=== PATIENT | female | born 1995 | race Two or more races ===

== ENCOUNTER 2017-02-01 17:28 | Emergency (ER) | payer BC ==
[~2017-02-01] VITALS: Ht 167.6 cm; Wt 63.5 kg
[2017-02-01] MEDS ORDERED: IV NORMAL SALINE 1000ML BAG 1,000 ML IV ONE (18:15)
[2017-02-01] MEDS ORDERED: METOCLOPRAMIDE HCL 10 MG/2 ML VIAL. IV ONE (18:15)
[2017-02-01] MEDS ORDERED: diphenhydrAMINE 50 MG/ML VIAL IVP ONE (18:15)
[2017-02-01] MEDS ORDERED: PROCHLORPERAZINE 10 MG/2 ML VIAL. IV ONE (18:15)
--- NOTE | 2017-02-01 18:50 | PHYS DOC ---
Adult General Chief Complaint Chief Complaint: HEADACHE HPI HPI Patient is a 21 year old female with history of frequent migraines who presents with left retro-orbital migraine-like headache during 3 days prior to ED arrival. Headache was gradual on onset. He is describing as throbbing and rated moderate similar to previous migraine headaches. This associated with nausea, vomiting and blurry vision. Patient last vomited yesterday. Denies neck pain, neck stiffness, fever or rash. No extremity weakness or loss of sensation. Pain is typical in quality pattern and location as previous headaches , but has not improved home and migraine. Patient is not currently on migraine prophylaxis. She experiences 2-3 migraines per week. Last menstrual period was 2 weeks ago. No other acute symptoms or complaints. Review of Systems Review of Systems Review of symptoms as per history of present illness. All other review symptoms are negative. Current Medications Current Medications Current Medications Medications (Trade) Dose Ordered Sig/Talib Start Time Stop Time Status Last Admin Dose Admin Diphenhydramine HCl (Benadryl) 50 mg 1X ONCE 02/01/17 18:15 02/01/17 18:30 DC 02/01/17 18:38 50 MG Metoclopramide HCl (Reglan) 10 mg 1X ONCE 02/01/17 18:15 02/01/17 18:30 DC 02/01/17 18:38 10 MG Prochlorperazine Edisylate (Compazine) 10 mg 1X ONCE 02/01/17 18:15 02/01/17 18:30 DC 02/01/17 18:37 10 MG Sodium Chloride 1,000 ml @ 1,000 mls/hr 1X ONCE 02/01/17 18:15 02/01/17 19:14 02/01/17 18:37 1,000 MLS/HR Allergies Allergies Allergies Coded Allergies Type Severity Reaction Last Updated Verified amoxicillin Allergy Unknown Rash 02/01/17 Yes ibuprofen Allergy Unknown Nausea and Vomiting 02/01/17 Yes Physical Exam Physical Exam Constitutional: Well developed, well nourished, moderate discomfort secondary pain. [] HENT: Normocephalic, atraumatic, bilateral external ears normal, oropharynx moist, no oral exudates, nose normal. [] Eyes: PERRLA, EOMI, conjunctiva normal, no discharge. [] Neck: Normal range of motion, no tenderness, supple, no stridor. [] Cardiovascular:Heart rate regular rhythm, no murmur [] Lungs & Thorax: Bilateral breath sounds clear to auscultation [] Abdomen: Bowel sounds normal, soft, no tenderness, no masses. [] Skin: Warm, dry, no erythema, no rash. [] Back: No tenderness. [] Extremities: No tenderness, no cyanosis, no clubbing, ROM intact, no edema. [] Neurologic: Alert and oriented X 3, normal motor function, normal sensory function, no focal deficits noted. [] Psychologic: Affect normal, judgement normal, mood normal. [] Current Patient Data Lab Values Laboratory Tests Test 02/01/17 18:01 POC Urine HCG, Qualitative Hcg negative (Negative) EKG EKG [] Radiology/Procedures Radiology/Procedures [] Course & Med Decision Making Course & Med Decision Making Pertinent Labs and Imaging studies reviewed. (See chart for details) [Retracted, migraine headache without neurologic deficits. Typical migraine cocktail given with improvement of symptoms. WeIll continue supportive treatment with recommendations of PCP follow-up. Return precautions reviewed.] Dragon Disclaimer Sabine Disclaimer This electronic medical record was generated, in whole or in part, using a voice recognition dictation system. Departure Departure Referrals: NO PCP (PCP) ZELALEM ARELLANO DO Feb 01, 2017 18:50
[2017-02-01] MEDS ORDERED: DEXAMETHASONE SOD PHOS 20 MG/5 ML VIAL. IV ONE (19:00)
[2017-02-01 19:58] LABS: BILIRUBIN,URINE NEGATIVE (NEG); GLUCOSE,URINE NEGATIVE (NEG); NITRITE,URINE NEGATIVE (NEG); PH,URINE 6.5; PROTEIN,URINE NEGATIVE (NEG-TRACE); UROBILINOGEN,URINE 0.2 mg/dL (0.2 mg/dL)
[2017-02-01 20:00] VITALS: BP 105/61
[2017-02-01 20:07] LABS: BACTERIA,URINE MODERATE /HPF (0-FEW); RBC,URINE OCC /HPF (0-2); SQUAMOUS EPITHELIAL CELL,UR MOD /LPF
== END 2017-02-01 20:35 | disposition home or self-care (01) ==
LOC: ER 17:28
DX: G43.909 Migraine, unspecified, not intractable, without status migrainosus (principal); Z88.1 Allergy status to other antibiotic agents; Z88.6 Allergy status to analgesic agent
CPT/HCPCS: 81001; 81025; 87086; 96361; 96374; 96375; 99284; J0780; J1100; J1200; J2765; J7030